=== PATIENT | female | born 1955 | race Caucasian/White ===

== ENCOUNTER 2018-10-11 11:23 | Emergency (ER) | payer OTHER ==
[2018-10-11 11:33] VITALS: BP 136/80
--- NOTE | 2018-10-11 12:17 | ED Physician Documentation ---
History of Present Illness - Stated complaint Stated Complaint: RASH - Chief complaint Chief Complaint: General - History obtained from History obtained from: Patient - History of Present Illness Timing: Other (63-year-old woman with history of pulmonary emboli on novel anticoagulant developed scalp pain that is lancinating on the right 8 days ago. Initial concern was for trigeminal neuralgia and she was placed on carbamazepine which is somewhat helpful, subsequently developed lesions consistent with shingles and was started on valacyclovir, no prednisone. She continues to be on the valacyclovir but was recommended to come to the emergency department for evaluation because it is near her eye and ear and she has a concern for Alfredo Villanueva syndrome. Her eye hurts but she notes no visual deficits. She notes no facial droop. Pain is controlled between chronic gabapentin, new carbamazepine, and the occasional half of Vicodin which she is already taking. She also notes bilateral pitting pedal edema while traveling.) Review of Systems Cardiac: reports: Reviewed and negative Respiratory: reports: Reviewed and negative GI: reports: Reviewed and negative PD PAST MEDICAL HISTORY - Present Medications Home Medications: Ambulatory Orders Medication Instructions Recorded Confirmed Cyclosporine [Restasis] 1 each OP BID #1 droperette 10/11/18 predniSONE [Deltasone] 20 mg PO [id number] #21 tab 10/11/18 - Allergies Allergies/Adverse Reactions: Allergies Allergy/AdvReac Type Severity Reaction Status Date / Time levofloxacin Allergy Anaphylaxis Verified 10/11/18 11:29 PD ED PE NORMAL - Vitals Vital signs reviewed: Yes - General General: Alert and oriented X 3, No acute distress - HEENT HEENT: Other (Shingles on the right side of the forehead and scalp, flourescein examination on the right is negative, no actual auricular lesions.) - Extremities Extremities: Other (2+ pitting bilateral pedal edema symmetric) - Neuro Neuro: Alert and oriented X 3 - Psych Psych: Normal mood, Normal affect Results - Vitals Vitals: Vital Signs - 24 hr 10/11/18 11:29 Temperature 36.6 C Heart Rate 77 Respiratory 16 Rate Blood Pressure 136/80 H O2 Saturation 100 Oxygen O2 Source Room air PD MEDICAL DECISION MAKING - ED course ED course: This is a 63-year-old woman with facial shingles, no evidence of ocular involvement or Alfredo Villanueva syndrome at this point. We will add prednisone. She will continue the valacyclovir. She also requested Restasis for eye dryness. She also wanted at least a one-time dose of a diuretic for the pedal edema, I also recommended increasing activity and decreasing salt intake. Departure - Departure Disposition: 01 Home, Self Care Clinical Impression: Varicella zoster Condition: Good Record reviewed to determine appropriate education?: Yes Instructions: ED Shingles Prescriptions: Cyclosporine [Restasis] 1 each OP BID #1 droperette predniSONE [Deltasone] 20 mg PO [id number] #21 tab Comments: Keep taking the valacyclovir, the carbamazepine and gabapentin. Also a half of Vicodin as needed for pain which you already have. Return for new or worsening symptoms, specifically worsening vision, uncontrolled pain, or a facial droop on the right. Follow-up with your doctor on return home.
[2018-10-11] MEDS ORDERED: FUROSEMIDE 20 MG TABLET PO STA (12:23)
[2018-10-11] MEDS ORDERED: POTASSIUM CHLORIDE 20 MEQ TABLET PO STA (12:23)
== END 2018-10-11 12:30 | disposition home or self-care (01) ==
LOC: ED 11:23
DX: B01.9 Varicella without complication (principal); Z86.711 Personal history of pulmonary embolism; Z79.01 Long term (current) use of anticoagulants
CPT/HCPCS: 99283; A9270

== ENCOUNTER 2018-10-28 16:08 | Emergency (ER) | payer OTHER ==
[2018-10-28 16:15] VITALS: BP 129/69
--- NOTE | 2018-10-28 16:37 | ED Physician Documentation ---
PD HPI OPHTHO - Stated complaint Stated Complaint: RT EYE PN/DX WITH OCCULAR SHINGLES - Chief complaint Chief Complaint: Heent - History obtained from History obtained from: Patient - History of Present Illness Timing - onset: Other (Had facial shingles a few weeks ago. That is all better now although she is having a little bit of postherpetic neuralgia, but for the last few days has had a gritty feeling in the right eye without serious vision loss but may be just very mildly blurry and wants to make sure she does not have HZO.) Review of Systems Constitutional: denies: Fever, Chills Eyes: denies: Loss of vision, Decreased vision, Photophobia Ears: denies: Loss of hearing, Ear pain PD PAST MEDICAL HISTORY - Past Medical History Past Medical History: Yes [employer]: Breast cancer Other Past Medical History: ocular shingles, blood clots - Past Surgical History Past Surgical History: Yes /[employer]: Mastectomy, Other - Present Medications Home Medications: Ambulatory Orders Medication Instructions Recorded Confirmed Erythromycin Base [Erythromycin 1 appful OP 5XD 7 Days #1 oint...g. 10/28/18 Ophthalmic Ointment] Rivaroxaban [Xarelto] 15 mg PO DAILY 10/28/18 10/28/18 Thyroid,Pork [Cathay Thyroid] 240 mg PO 10/28/18 - Allergies Allergies/Adverse Reactions: Allergies Allergy/AdvReac Type Severity Reaction Status Date / Time levofloxacin Allergy Anaphylaxis Verified 10/28/18 16:15 - Social History Does the pt smoke?: No Smoking Status: Never smoker - Immunizations Immunizations are current?: Yes PD ED PE NORMAL - Vitals Vital signs reviewed: Yes - General General: Alert and oriented X 3, No acute distress - HEENT HEENT: PERRL, EOMI, Other (There is no fluorescein uptake, no conjunctivitis.) - Neuro Neuro: Alert and oriented X 3, Normal speech Results - Vitals Vitals: Vital Signs - 24 hr 10/28/18 16:13 Temperature 36.8 C Heart Rate 112 H Respiratory 18 Rate Blood Pressure 129/69 O2 Saturation 100 Oxygen O2 Source Room air Departure - Departure Disposition: 01 Home, Self Care Clinical Impression: Dry eye Condition: Good Record reviewed to determine appropriate education?: Yes Prescriptions: Erythromycin Base [Erythromycin Ophthalmic Ointment] 1 appful OP 5XD 7 Days #1 oint...g. Comments: Return if worse or if vision changes significantly. Otherwise follow-up with your wildlife photographer on return home. Discharge Date/Time: 10/28/18 16:39
== END 2018-10-28 16:39 | disposition home or self-care (01) ==
LOC: ED 16:08
DX: H04.121 Dry eye syndrome of right lacrimal gland (principal); Z86.718 Personal history of other venous thrombosis and embolism; Z79.01 Long term (current) use of anticoagulants
CPT/HCPCS: 99283